=== PATIENT | female | born 1980 | race Caucasian/White ===

== ENCOUNTER 2017-05-11 15:55 | Emergency (ER) | payer OTHER | END 2017-05-11 21:08 | disposition home or self-care (01) | LOC: FTE 15:55 | DX: O99.513 Diseases of the respiratory system complicating pregnancy, third trimester (principal); J06.9 Acute upper respiratory infection, unspecified; Z3A.33 33 weeks gestation of pregnancy | CPT/HCPCS: 99283; Z7502 ==

== ENCOUNTER 2017-06-24 06:29 | Inpatient (IN) | payer OTHER ==
[2017-06-24 09:19] LABS: RUPTURE FETAL MEMBRANES POSITIVE (NEGATIVE)
[2017-06-24] MEDS ORDERED: LIDOCAINE 1% (MPF) 30 ML INJ INJ (10:00)
[2017-06-24] MEDS ORDERED: CARBOPROST 250 MCG INJ IM (10:00)
[2017-06-24] MEDS ORDERED: MISOPROSTOL 200 MCG TAB PR (10:00)
[2017-06-24] MEDS ORDERED: METHYLERGONOVINE 0.2 MG INJ IM (10:00)
[2017-06-24] MEDS ORDERED: BUTORPHANOL 2 MG INJ IV (10:00)
[2017-06-24] MEDS ORDERED: IBUPROFEN 600 MG TAB PO (10:00)
[2017-06-24] MEDS ORDERED: OXYTOCIN 30 UNITS/LR 500 ML IV (10:00)
[2017-06-24 10:46] LABS: ADD MAN DIFF? NO
[2017-06-24 10:51] LABS: WHITE BLOOD COUNT 7.1 10^3/ul (4.8-10.8)
[2017-06-24 10:51] LABS: BASOPHILS % 0.3 % (0.0-2.0); EOSINOPHILS # 0.1 10^3/ul (0.0-0.5); EOSINOPHILS % 1.6 % (0.0-7.0); HEMOGLOBIN 10.8 g/dl (12.0-16.0); LYMPHOCYTES # 1.9 10^3/ul (0.8-2.9); LYMPHOCYTES % 26.3 % (15.0-51.0); MEAN CORPUSCULAR HEMOGLOBIN 26.5 pg (29.0-33.0); MEAN CORPUSCULAR HGB CONC 32.7 g/dl (32.0-37.0); MEAN CORPUSCULAR VOLUME 81.1 fl (82.0-101.0); MEAN PLATELET VOLUME 12.2 fl (7.4-10.4); MONOCYTE # 0.6 10^3/ul (0.3-0.9); MONOCYTES % 7.8 % (0.0-11.0); NEUTROPHIL # 4.5 10^3/ul (1.6-7.5); NEUTROPHILS % 63.4 % (39.0-77.0); PLATELET COUNT 176 10^3/UL (140-415); RED BLOOD COUNT 4.07 10^6/ul (4.20-5.40); RED CELL DISTRIBUTION WIDTH 13.6 % (11.5-14.5)
[2017-06-24] MEDS: LACTATED RINGER'S 1,000 ML IV ×3 (11:01→18:56)
[2017-06-24] MEDS: AMPICILLIN 2 GM/NS (PMX) 100 ML IV (11:03)
[2017-06-24 11:05] LABS: PROTIME 12.2 Sec (11.9-14.9)
[2017-06-24 11:06] LABS: PARTIAL THROMBOPLASTIN TIME 28.2 Sec (25.0-35.0)
[2017-06-24] MEDS: OXYTOCIN 30 UNITS/LR 500 ML IV (11:26)
[2017-06-24 12:21] LABS: HEPATITIS B SURFACE ANTIGEN NEGATIVE (NEGATIVE)
[2017-06-24] MEDS ORDERED: FENTAnyl 2MCG/ML-ROPIV 0.2% 100 ML (13:44)
[2017-06-24] MEDS ORDERED: HYDROmorphONE 0.5 MG/0.5 ML SYG IV ×2 (14:00)
[2017-06-24] MEDS ORDERED: DIPHENHYDRAMINE 50 MG INJ IV (14:00)
[2017-06-24] MEDS ORDERED: ONDANSETRON 4 MG INJ IV (14:00)
[2017-06-24] MEDS ORDERED: NALOXONE (0.4 MG/ML) INJ IV (14:00)
[2017-06-24] MEDS ORDERED: KETOROLAC 30 MG INJ IV (14:00)
[2017-06-24] MEDS: AMPICILLIN 1 GM/NS (PMX) 50 ML IV ×3 (15:55→22:50)
[2017-06-24] MEDS: CALCIUM CARBONATE 500 MG CHEW TAB PO ×2 (18:33→22:14)
[2017-06-24 20:08] LABS: RAPID PLASMA REAGIN NONREACTIVE (NR)
[2017-06-24] MEDS: FENTAnyl 2MCG/ML-ROPIV 0.2% 100 ML BAG EPI ×2 (22:03→22:50)
[2017-06-25] MEDS: OXYTOCIN 30 UNITS/LR 500 ML IV ×3 (00:02→00:08)
[2017-06-25] MEDS ORDERED: MISOPROSTOL 200 MCG TAB PR (00:30)
[2017-06-25] MEDS ORDERED: ONDANSETRON 4 MG INJ IV (00:30)
[2017-06-25] MEDS ORDERED: OXYTOCIN 30 UNITS/LR 500 ML IV (00:30)
[2017-06-25] MEDS ORDERED: CARBOPROST 250 MCG INJ IM (00:30)
[2017-06-25] MEDS ORDERED: ACETAMINOPHEN 325 MG TAB PO ×2 (00:30)
[2017-06-25] MEDS ORDERED: DIBUCAINE 1% 30 GM OINT PR (00:30)
[2017-06-25] MEDS ORDERED: BENZOCAINE 20% 56 ML SPRAY TOP (00:30)
[2017-06-25] MEDS ORDERED: METHYLERGONOVINE 0.2 MG INJ IM (00:30)
[2017-06-25] MEDS ORDERED: WITCH HAZEL/GLYCERIN PAD PR (00:30)
[2017-06-25] MEDS ORDERED: MAGNESIUM HYDROXIDE 30ML CUP PO (00:30)
[2017-06-25] MEDS: LACTATED RINGER'S 1,000 ML IV (01:40)
[2017-06-25] MEDS: LANOLIN 7 GM TUBE TOP (05:56)
[2017-06-25] MEDS: LACTATED RINGER'S 1,000 ML IV* (08:02)
[2017-06-25] MEDS: IBUPROFEN 600 MG TAB PO (15:02)
[2017-06-25] MEDS: SENNA/DOCUSATE NA (8.6MG/50MG) TAB PO (21:09)
[2017-06-26 10:41] LABS: ADD MAN DIFF? NO
[2017-06-26 10:47] LABS: BASOPHILS % 0.2 % (0.0-2.0); EOSINOPHILS # 0.1 10^3/ul (0.0-0.5); EOSINOPHILS % 1.1 % (0.0-7.0); HEMATOCRIT 32.1 % (37.0-47.0); HEMOGLOBIN 10.5 g/dl (12.0-16.0); LYMPHOCYTES % 15.8 % (15.0-51.0); MEAN CORPUSCULAR HEMOGLOBIN 26.3 pg (29.0-33.0); MEAN CORPUSCULAR HGB CONC 32.7 g/dl (32.0-37.0); MEAN CORPUSCULAR VOLUME 80.5 fl (82.0-101.0); MEAN PLATELET VOLUME 12.1 fl (7.4-10.4); MONOCYTE # 0.8 10^3/ul (0.3-0.9); MONOCYTES % 6.5 % (0.0-11.0); NEUTROPHIL # 9.8 10^3/ul (1.6-7.5); NEUTROPHILS % 75.9 % (39.0-77.0); PLATELET COUNT 179 10^3/UL (140-415); RED BLOOD COUNT 3.99 10^6/ul (4.20-5.40); RED CELL DISTRIBUTION WIDTH 13.7 % (11.5-14.5)
[2017-06-26 10:47] LABS: WHITE BLOOD COUNT 12.9 10^3/ul (4.8-10.8)
== END 2017-06-26 13:05 | disposition home or self-care (01) | DRG 775 ==
LOC: OBT 06:29 → PP1 06-25 01:34 → L-D 06:34 → OBT 10:16 → L-D 10:10
PROVIDERS: Obstetrics & Gynecology
PROC: 10E0XZZ Delivery of Products of Conception, External Approach (ICD-10-PCS; principal; 2017-06-24)
PROC: 4A1HXCZ Monitoring of Products of Conception, Cardiac Rate, External Approach (ICD-10-PCS; 2017-06-24)
DX: O42.02 Full-term premature rupture of membranes, onset of labor within 24 hours of rupture (principal); O69.81X0 Labor and delivery complicated by cord around neck, without compression, not applicable or unspecified; Z3A.39 39 weeks gestation of pregnancy; Z37.0 Single live birth
CPT/HCPCS: 62319; 76818; 84112; 85025; 85610; 85730; 86592; 86850; 86900; 86901; 87340